=== PATIENT | male | born 1935 | race Caucasian/White ===

== ENCOUNTER 2019-07-17 09:07 | Emergency (ER) | payer MEDICARE ==
[2019-07-17 10:05] VITALS: BP 135/62
--- NOTE | 2019-07-17 10:52 | UC ---
Truncal Trauma HPI - HPI Summary HPI Summary: 84 yo male fell 3 weeks ago injuring his left chest Pain improving worse with cough/sneeze no SOB - History Of Current Complaint Chief Complaint: UCTrauma Stated Complaint: RIB/SIDEPAIN Time Seen by Provider: 07/17/19 10:06 Hx Obtained From: Patient Onset/Duration: Sudden Onset Onset Of Pain: Immediate Severity Initially: Moderate Severity Currently: Mild Pain Intensity: 0 Pain Scale Used: 0-10 Numeric Mechanism Of Injury: Fall From A Standing Position Associated Signs And Symptoms: Positive: Chest Pain Torso: 1 - point tender - Allergies/Home Medications Allergies/Adverse Reactions: Allergies Allergy/AdvReac Type Severity Reaction Status Date / Time simvastatin Allergy Behavior Verified 07/17/19 09:55 Change PMH/Surg Hx/FS Hx/Imm Hx Previously Healthy: Yes Endocrine History: Dyslipidemia Cardiovascular History: Hypertension, Pacemaker/ICD - Surgical History Surgical History: Yes Surgery Procedure, Year, and Place: Prostrate - 2012. Gallbladder - 2008. Right shoulder replacement 2013 - Family History Known Family History: Positive: Cardiac Disease, Hypertension - Social History Alcohol Use: Rare Substance Use Type: None Smoking Status (MU): Never Smoked Tobacco Review of Systems All Other Systems Reviewed And Are Negative: Yes Constitutional: Positive: Negative Skin: Positive: Negative Eyes: Positive: Negative ENT: Positive: Negative Respiratory: Positive: Negative Cardiovascular: Positive: Chest Pain Gastrointestinal: Positive: Negative Genitourinary: Positive: Negative Motor: Positive: Negative Neurovascular: Positive: Negative Musculoskeletal: Positive: Negative Neurological: Positive: Negative Psychological: Positive: Negative Physical Exam Triage Information Reviewed: Yes Appearance: Well-Appearing, No Pain Distress, Well-Nourished Vital Signs: Initial Vital Signs Temp 97.8 F 07/17/19 09:52 Pulse 66 07/17/19 09:52 Resp 18 07/17/19 09:52 BP 135/62 07/17/19 09:52 Pulse Ox 100 07/17/19 09:52 Vital Signs Reviewed: Yes Eye Exam: Normal ENT: Negative: Hearing grossly normal, Nasal congestion, Nasal drainage, Trismus , Muffled voice, Hoarse voice Dental Exam: Normal Neck: Positive: Supple Respiratory: Positive: Lungs clear, Normal breath sounds, No respiratory distress, No accessory muscle use. Negative: Chest non-tender - see image Cardiovascular: Positive: RRR Musculoskeletal: Positive: ROM Intact, No Edema Neurological: Positive: Alert Psychological Exam: Normal Skin Exam: Normal Diagnostics - Radiology No standard instances Radiology Interpretation Completed By: Radiologist Summary of Radiographic Findings: non displaced left 8th rib fracture Truncal Trauma Course/Dx - Differential Dx/Diagnosis Provider Diagnosis: Left rib fracture Discharge ED - Sign-Out/Discharge Documenting (check all that apply): Patient Departure All imaging exams completed and their final reports reviewed: Yes - Discharge Plan Condition: Stable Disposition: HOME Patient Education Materials: Rib Fracture (ED) Referrals: Jeffry Boothe PA [Primary Care Provider] - If Needed Additional Instructions: you have a non displaced fracture of the left 8th rib recheck for new or worsening symptoms may take another month or two to heal completely - Billing Disposition and Condition Condition: STABLE Disposition: Home
== END 2019-07-17 11:08 | disposition home or self-care (01) ==
LOC: UCCORT 09:07
DX: S22.32XA Fracture of one rib, left side, initial encounter for closed fracture (principal); I10 Essential (primary) hypertension; Z88.8 Allergy status to other drugs, medicaments and biological substances; Z96.89 Presence of other specified functional implants; W19.XXXA Unspecified fall, initial encounter; Y92.9 Unspecified place or not applicable
CPT/HCPCS: 99211; G0463